=== PATIENT | male | born 1980 | race African-American/Black ===

== ENCOUNTER 2017-04-22 15:59 | Emergency (ER) | payer SELFPAY ==
[~2017-04-22] VITALS: Ht 185.4 cm; Wt 77.9 kg
[~2017-04-22 15:59] MED LIST: NO HOME MEDICATIONS; PHENERGAN 25 TA25 MG PO; VICODIN 5/5001 UDTAB PO
[2017-04-22 16:03] VITALS: TEMP 98.3
[2017-04-22] MEDS ORDERED: AMOXICILLIN 50500 MG PO (16:22)
[2017-04-22] MEDS ORDERED: NORCO 325 MG-51 TAB PO (16:22)
[2017-04-22 16:25] VITALS: BP 130/88; PULSE 84
== END 2017-04-22 16:25 | disposition home or self-care (01) ==
LOC: COL.ER 15:59
DX: K02.9 Dental caries, unspecified (principal)